=== PATIENT | female | born 1985 | race African-American/Black ===

== ENCOUNTER 2019-06-28 03:17 | Emergency (ER) | payer BC, MEDICAID ==
[~2019-06-28] VITALS: Ht 170.2 cm; Wt 103.0 kg
[2019-06-28] MEDS ORDERED: SILVER SULFADIAZINE 1% CREAM 25GM TOP ONE (04:30)
[2019-06-28] MEDS ORDERED: IBUPROFEN 600MG TABLET PO ONE (04:30)
[2019-06-28 04:37] VITALS: BP 141/85
== END 2019-06-28 04:41 | disposition home or self-care (01) ==
LOC: ER 03:17
DX: T25.122A Burn of first degree of left foot, initial encounter (principal); T25.121A Burn of first degree of right foot, initial encounter; T31.0 Burns involving less than 10% of body surface; T79.8XXA Other early complications of trauma, initial encounter; X10.2XXA Contact with fats and cooking oils, initial encounter; Y93.89 Activity, other specified; Y92.89 Other specified places as the place of occurrence of the external cause; Y99.8 Other external cause status; F12.10 Cannabis abuse, uncomplicated
CPT/HCPCS: 16000; 99284